=== PATIENT | female | born 1960 | race Two or more races ===

== ENCOUNTER 2020-06-03 16:29 | Emergency (ER) | payer OTHER ==
[~2020-06-03] VITALS: Ht 160 cm; Wt 63.5 kg
[2020-06-03 19:01] VITALS: BP 183/79
== END 2020-06-03 19:18 | disposition home or self-care (01) ==
LOC: ER 16:29
DX: M71.21 Synovial cyst of popliteal space [Baker], right knee (principal)
CPT/HCPCS: 73562; 93971

== ENCOUNTER 2020-10-25 06:44 | Emergency (ER) | payer OTHER ==
[~2020-10-25] VITALS: Ht 160 cm; Wt 63.5 kg
[2020-10-25 07:43] VITALS: BP 136/82
[2020-10-25] MEDS ORDERED: KETOROLAC TROMETH 60MG/2ML VIAL IM ONE (09:00)
== END 2020-10-25 09:12 | disposition home or self-care (01) ==
LOC: ER 06:44
DX: S46.812A Strain of other muscles, fascia and tendons at shoulder and upper arm level, left arm, initial encounter (principal); M13.812 Other specified arthritis, left shoulder; X58.XXXA Exposure to other specified factors, initial encounter; Y93.89 Activity, other specified; Y92.89 Other specified places as the place of occurrence of the external cause; Y99.8 Other external cause status
CPT/HCPCS: 73030; 96372; 99283; J1885